=== PATIENT | female | born 1980 | race Two or more races ===

== ENCOUNTER → 2017-11-16 | Outpatient (CLI) | payer OTHER ==
[2017-11-16 15:12] LABS: VAL ACID 119 mcg/mL (50-100)
== END | disposition home or self-care (01) ==
LOC: EEVIPCON 12:53 → SPEC 12:53
PROVIDERS: ATTEND Urology
DX: F19.94 Other psychoactive substance use, unspecified with psychoactive substance-induced mood disorder (principal)
CPT/HCPCS: 36415; 80164